=== PATIENT | female | born 1995 | race Caucasian/White ===

== ENCOUNTER 2017-12-20 17:50 | Emergency (ER) | payer OTHER ==
[~2017-12-20] VITALS: Ht 162.6 cm; Wt 62.5 kg
[2017-12-20 17:54] VITALS: TEMP 37; Ht 162.6 cm; Wt 62.5 kg
[2017-12-20] MEDS ORDERED: SODIUM CHLORIDE 0.9% 1000ML 1,000 ML IV STA (18:49)
[2017-12-20] MEDS ORDERED: KETOROLAC TROMETHAMINE 30 MG/ML VIAL IV STA (18:49)
[2017-12-20] MEDS ORDERED: CEPH500C2 PO (18:59)
[2017-12-20] MEDS ORDERED: IBUP-103 PO (18:59)
[2017-12-20] MEDS ORDERED: CLINDAMYCIN 600 MG/54 ML D5W IV ONE (19:00)
[2017-12-20] MEDS ORDERED: DEXAMETHASONE **PF** INJ 10 MG/ML VIAL IV ONE (19:00)
[2017-12-20 19:20] LABS: BASO % 0.2 %; BASO ABS # 0.01 K/uL (0-0.2); EOS % 0.9 %; EOS ABS # 0.05 K/uL (0-0.5); HEMATOCRIT 38.6 % (37-47); IG# 0.01 K/uL (0.00-0.02); LYMPH % 38.6 %; LYMPH ABS # 2.22 K/uL (1.2-3.4); MEAN CELL VOLUME 86.9 fL (80-100); MEAN CORPUSCULAR HEMOGLOBIN 29.3 pg (25-34); MEAN CORPUSCULAR HGB CONC 33.7 g/dl (32-36); MEAN PLATELET VOLUME 8.7 fL (7.4-10.4); MONO % 10.6 %; MONO ABS # 0.61 K/uL (0.11-0.59); NEUT % 49.5 %; NEUT ABS # 2.85 K/uL (1.4-6.5); PLATELET COUNT 283 K/uL (130-400); RED CELL DISTRIBUTION WIDTH CV 12.9 % (11.5-14.5); RED CELL DISTRIBUTION WIDTH SD 41.6 fL (36.4-46.3); WHITE BLOOD COUNT 5.75 K/uL (4.8-10.8)
--- NOTE | 2017-12-20 19:36 | EMERGENCY ROOM VISIT NOTE ---
ED Visit Note First contact with patient: 18:39 CHIEF COMPLAINT: Sore throat HISTORY OF PRESENTING ILLNESS: This is a 22-year-old female who presents to the emergency department with complaint of sore throat for the past 5 days. Patient states 10 days ago that she had her wisdom teeth out and was placed on amoxicillin after the surgery. She states that she took the amoxicillin for about 1 week. While taking the amoxicillin, she developed a sore throat, she was seen at an urgent care and diagnosed with strep throat, so she was told to stop the amoxicillin and was switched to Keflex. She has taken the Keflex for 4 days, but states she has not had any improvement in her throat pain. She went to [facility] yesterday, where they tested her for mono, which was negative. She states that they told her to continue taking the Keflex. She states the pain in her throat is worse on the right side compared to the left. She states that she had a low-grade fever 5 days ago when her sore throat started, but has not had any fevers since then. She denies any difficulty breathing, difficulty swallowing, muffled voice. She denies any chest pain, abdominal or back pain, nausea, vomiting, diarrhea, urinary complaints, or rash. REVIEW OF SYSTEMS: A complete 10 point review of systems was reviewed with the patient with pertinent positives and negatives as per history of present illness. All else were negative. PAST MEDICAL HISTORY: No significant past medical or surgical history. Up-to- date on immunizations. SOCIAL HISTORY: Lives at home. Denies tobacco use. ALLERGIES: NKA PHYSICAL EXAM: CONSTITUTIONAL: Pleasant and cooperative. No acute distress. Mildly dehydrated , but otherwise well appearing and well nourished. HEENT: Normocephalic, atraumatic. Pupils equal, round and reactive to light, EOMI. TMs normal. Pharynx erythematous, moderately edematous with white exudates. No trismus, no uvular deviation or edema. Tacky mucous membranes NECK: Supple, full active range of motion without discomfort. Bilateral anterior cervical adenopathy, nontender to palpation. RESPIRATORY: Clear to auscultation bilaterally with no wheezing, crackles, rhonchi or stridor. Equal expansion bilaterally. CARDIOVASCULAR: Regular rate and rhythm with no murmurs, rubs or gallops. Normal peripheral perfusion. No edema. GASTROINTESTINAL: Soft, nontender, nondistended. No palpable masses or HSM. Bowel sounds present in all quadrants. MUSCULOSKELETAL: Full range of motion of all joints without discomfort. INTEGUMENTARY: No rash or other significant dermatologic conditions noted. NEUROLOGIC: Alert and oriented X 4 with normal affect. Cranial nerves II-XII grossly intact. No focal neurologic deficits noted. Normal strength and sensation all 4 extremities. Normal speech. Normal gait observed. ED COURSE AND MEDICAL DECISION MAKING: CC: Patient presenting with complaint of sore throat DIFFERENTIAL DIAGNOSIS: Includes, but not limited to viral pharyngitis, strep pharyngitis, tonsillitis, peritonsillar abscess, cervical adenopathy, dehydration, among others. INTERPRETATION OF LABS: No leukocytosis, no anemia, no significant electro light abnormalities, normal renal function. Urine negative. MEDICATION RECONCILIATION: I attest that I have personally reviewed the patient 's current medication list. INITIAL VITAL SIGNS REVIEW: I reviewed the patient's initial vital signs and interpret them as follows: T: Afebrile; BP: Normotensive; HR: Tachycardic; RR : Within normal limits; Pulse Ox: Within normal limits on room air. Blood pressure screening: The patient was found to have normal blood pressure on screening and does not require follow-up for repeat blood pressure check. SUMMARY: Patient was evaluated at bedside, history and physical exam performed. Patient is alert and oriented, in no acute distress, resting calmly on the stretcher. Posterior pharynx is erythematous, moderately swollen, with white exudates. Right tonsillar edema slightly greater than left, but no trismus and no uvular deviation. Orders were placed at bedside for labs, urine , IV fluids for hydration , IV Decadron and Toradol, IV clindamycin to treat for tonsillitis. Patient discussed with Dr. Preston, who agrees with my assessment and plan. Labs and imaging reviewed as above, unremarkable. I do not suspect peritonsillar abscess clinically at this time, but I did discuss with the patient signs and symptoms to indicate a need for prompt return. Patient reassessed multiple times throughout ED stay, she reports she is feeling much improved after IV fluids and medications. She is tolerating oral fluids without difficulty. Tachycardia is resolved. Patient was updated on all results and plan for discharge, she was encouraged to follow closely with [facility], and was also provided with referral information for ENT if needed. Patient was also given strict return precautions should her symptoms worsen, she verbalized understanding. Patient was discharged home in stable condition and ambulatory. Current/Historical Medications Scheduled Cephalexin Monohydrate (Keflex), 500 MG PO BID Clindamycin Hcl (Cleocin), 300 MG PO QID Scheduled PRN Ibuprofen Tab (Advil), 200-600 MG PO Q4H PRN for Pain Allergies Coded Allergies: No Known Allergies (Unverified , 12/20/17) Vital Signs Date Time Temp Pulse Resp B/P (MAP) Pulse Ox O2 Delivery O2 Flow Rate FiO2 12/20/17 20:36 89 16 122/83 98 12/20/17 19:49 74 16 123/76 99 Room Air 12/20/17 17:54 37.0 121 18 137/89 98 Room Air 12/20/17 17:54 99 Room Air Laboratory Results 12/20/17 19:04 Red Blood Count 4.44, Mean Corpuscular Volume 86.9, Mean Corpuscular Hemoglobin 29.3, Mean Corpuscular Hemoglobin Concent 33.7, Mean Platelet Volume 8.7, Neutrophils (%) (Auto) 49.5, Lymphocytes (%) (Auto) 38.6, Monocytes (%) (Auto) 10.6, Eosinophils (%) (Auto) 0.9, Basophils (%) (Auto) 0.2, Neutrophils # (Auto ) 2.85, Lymphocytes # (Auto) 2.22, Monocytes # (Auto) 0.61, Eosinophils # (Auto ) 0.05, Basophils # (Auto) 0.01 12/20/17 19:04 Test 12/20/17 19:04 12/20/17 20:15 White Blood Count 5.75 K/uL (4.8-10.8) Red Blood Count 4.44 M/uL (4.2-5.4) Hemoglobin 13.0 g/dL (12.0-16.0) Hematocrit 38.6 % (37-47) Mean Corpuscular Volume 86.9 fL (80-100) Mean Corpuscular Hemoglobin 29.3 pg (25-34) Mean Corpuscular Hemoglobin Concent 33.7 g/dl (32-36) Platelet Count 283 K/uL (130-400) Mean Platelet Volume 8.7 fL (7.4-10.4) Neutrophils (%) (Auto) 49.5 % Lymphocytes (%) (Auto) 38.6 % Monocytes (%) (Auto) 10.6 % Eosinophils (%) (Auto) 0.9 % Basophils (%) (Auto) 0.2 % Neutrophils # (Auto) 2.85 K/uL (1.4-6.5) Lymphocytes # (Auto) 2.22 K/uL (1.2-3.4) Monocytes # (Auto) 0.61 K/uL (0.11-0.59) Eosinophils # (Auto) 0.05 K/uL (0-0.5) Basophils # (Auto) 0.01 K/uL (0-0.2) RDW Standard Deviation 41.6 fL (36.4-46.3) RDW Coefficient of Variation 12.9 % (11.5-14.5) Immature Granulocyte % (Auto) 0.2 % Immature Granulocyte # (Auto) 0.01 K/uL (0.00-0.02) Anion Gap 6.0 mmol/L (3-11) Est Creatinine Clear Calc Drug Dose 102.0 ml/min Estimated GFR () 130.9 Estimated GFR (Non- 112.9 BUN/Creatinine Ratio 16.1 (10-20) Calcium Level 9.3 mg/dl (8.5-10.1) Urine Test NEG (NEG) Medications Administered Medications (Trade) Dose Ordered Sig/Dino Route Start Time Stop Time Status Last Admin Dose Admin Sodium Chloride 1,000 ml @ 999 mls/hr Q1H1M STAT IV 12/20/17 18:49 12/20/17 19:49 DC 12/20/17 19:15 999 MLS/HR Dexamethasone Sodium Phosphate (Dexamethasone Inj Pf) 10 mg NOW ONCE IV 12/20/17 19:00 12/20/17 19:01 DC 12/20/17 19:15 10 MG Ketorolac Tromethamine (Toradol Inj) 15 mg NOW STAT IV 12/20/17 18:49 12/20/17 18:54 DC 12/20/17 19:16 15 MG Clindamycin Phosphate (Cleocin 600mg/ 54ml D5W) 600 mg ONE ONCE IV 12/20/17 19:00 12/20/17 19:01 DC 12/20/17 19:00 600 MG Clindamycin HCl (Cleocin 150MG Home Pack) 1 homepack UD ONCE PO 12/20/17 20:30 12/20/17 20:31 DC 12/20/17 20:29 1 HOMEPACK Departure Information Impression Primary Impression: Tonsillitis Dispostion Home / Self-Care Condition GOOD Prescriptions Clindamycin Hcl (CLEOCIN) 300 Mg Cap 300 MG PO QID for 10 Days, #40 CAP Prov: Sherrie Hamm CRNP 12/20/17 Referrals No Doctor, Assigned (PCP) Pan Cook D.O. [facility] Patient Instructions ED Tonsillitis, [facility] Additional Instructions You were seen in the emergency department for your sore throat. You were prescribed clindamycin to be taken 4 times a day for 10 days. This is an antibiotic. All antibiotics have the potential to cause diarrhea. Take a probiotic daily or start eating yogurt every day to help reduce chances of developing diarrhea from the antibiotic. Stop this medication and contact a medical provider if you were to develop any significant adverse side effects including: wheezing, shortness of breath, passing out, vomiting, or a diffuse rash. Always take antibiotics as directed and COMPLETE the ENTIRE course regardless of the improvement of your symptoms. For pain and fever control, you can use the following [id number] medicines (if >12 yo): - Regular strength (325mg/tab) Tylenol (acetaminophen) 2 tabs every 4-6 hours as needed. Do not exceed 10 tablets in a 24 hour period. Avoid taking more than 3000 mg of Tylenol per day. This includes any other sources of acetaminophen you may take on a regular basis. - Regular strength (200 mg/tab) Advil (ibuprofen) 3 tabs every 6-8 hours as needed. Do not exceed a dose of 2400 mg per day. - For best results, alternate dosing of Tylenol and Advil every 3-4 hours. In addition to your prescribed medications, you can also use the following home remedies: - Warm salt-water gargles 3 times per day can soothe your throat and help to fight infection. - Warm tea with honey can soothe your throat. - Cepacol lozenges and Chloraseptic throat sprays. Follow up with your primary care provider in 2-3 days from today's emergency department visit. You have been provided with contact information for an ears nose and throat (ENT) surgeon. If your symptoms are not improving in the next 2 -3 days, please contact ENT for an appointment to be seen. Please return to the emergency department if your symptoms worsen over the next 2-3 days despite treatment course outlined above. Return to the emergency department if you develop the following symptoms of: inability to swallow solids , liquids, or drool; excessive wheezing or inability to catch your breath; muffled "hot potato" voice; return of fever; or worsening pain. School Instructions Return To School: 1 day
[2017-12-20 19:49] LABS: CALCIUM 9.3 mg/dl (8.5-10.1); CREATININE 0.76 mg/dl (0.60-1.20); POTASSIUM 3.7 mmol/L (3.5-5.1)
[2017-12-20] MEDS ORDERED: CLIN300C2 PO (20:24)
[2017-12-20] MEDS ORDERED: CLINDAMYCIN 150MG HOME PACK PO ONE (20:30)
[2017-12-20 20:36] VITALS: BP 122/83; PULSE 89; O2SAT 98
== END 2017-12-20 20:38 | disposition home or self-care (01) ==
LOC: C.EDB 17:53
DX: J03.90 Acute tonsillitis, unspecified (principal)